=== PATIENT | female | born 1965 | race Asian ===

== ENCOUNTER → 2019-05-22 | Outpatient (CLI) | payer OTHER ==
--- NOTE | 2019-05-22 20:34 | Diagnostic Imaging Report ---
EXAM: CHEST 2 VIEWS DATE: 05/22/2019 12:00 AM INDICATION: ^[id number] ^[id number] ^PHYSICAL EXAM COMPARISON: None FINDINGS: Lines and tubes: None Heart size normal. No focal pulmonary opacity, pleural effusion or pneumothorax. Slight haziness in the left apical area likely due to rotation producing asymmetry of overlying soft tissues. Upper abdomen unremarkable. No acute bony abnormality. IMPRESSION: No evidence for acute disease. Signed by: Dr. Yevgeniy Lang M.D. on 05/22/2019 8:31 PM
== END ==
LOC: RAD 17:12
PROVIDERS: ATTEND Internal Medicine
DX: Z00.00 Encounter for general adult medical examination without abnormal findings (principal)
CPT/HCPCS: 71046